=== PATIENT | male | born 1985 | race Caucasian/White ===

== ENCOUNTER 2016-12-05 10:44 | Observation (INO) | payer BC ==
[~2016-12-05] VITALS: Ht 190.5 cm; Wt 72.8 kg
[2016-12-05] MEDS ORDERED: LORazepam 2 MG/ML, 1ML IVPush ONE (12:00)
[2016-12-05] MEDS ORDERED: LORazepam 2 MG/ML, 1ML ONE (12:11)
[2016-12-05 12:15] LABS: ACETAMINOPHEN < 2 mcg/mL (10-30); BLOOD UREA NITROGEN 7 mg/dL (7-18)
[2016-12-05] MEDS ORDERED: DIPHENHYDRAMINE 50 MG CAPSULE PO PRN (13:30)
[2016-12-05] MEDS ORDERED: ONDANSETRON 2MG/ML, 2ML IV PRN (13:30)
[2016-12-05] MEDS ORDERED: LABETALOL 5MG/ML, 20ML IV PRN (13:30)
[2016-12-05] MEDS ORDERED: LORazepam 2 MG/ML, 1ML IV PRN ×5 (13:30)
[2016-12-05] MEDS ORDERED: ALUMINUM/MAG/SIMETHICONE 30 ML UDC PO PRN (13:30)
[2016-12-05] MEDS ORDERED: ACETAMINOPHEN 325 MG TABLET PO PRN (13:30)
[2016-12-05] MEDS ORDERED: LORazepam 1MG TABLET PO PRN ×4 (13:30)
[2016-12-05] MEDS ORDERED: LORazepam 0.5MG TABLET PO PRN (13:30)
[2016-12-05] MEDS ORDERED: POTASSIUM CHLORIDE 40 MEQ, MVI ADULT 10 ML, FOLIC ACID 1 MG, MAGNESIUM SULFATE 2 GM in ... IV SCH (16:00)
[2016-12-05] MEDS ORDERED: NICOTINE 21 MG/24 HR PATCH.TD24 TD SCH (16:00)
[2016-12-05 17:02] VITALS: BP 124/80
[2016-12-05 19:50] VITALS: BP 110/69
[2016-12-05] MEDS ORDERED: LORazepam 1MG TABLET ONE (21:47)
[2016-12-06 01:08] LABS: DAU SCREEN DISCLAIMER
[2016-12-06 03:41] VITALS: BP 118/74
[2016-12-06 05:40] LABS: ASPARTATE AMINO TRANSFERASE 85 U/L (15-37); BLOOD UREA NITROGEN 11 mg/dL (7-18)
[2016-12-06 08:00] VITALS: BP 116/74
[2016-12-06] MEDS ORDERED: NICOTINE 21 MG/24 HR PATCH.TD24 TD SCH (09:00)
[2016-12-06] MEDS ORDERED: ALPR0.25 PO (12:49)
== END 2016-12-06 13:05 | disposition home or self-care (01) ==
LOC: ED 11:35 → EDIP 12:45 → INTOOBSV 12:45 → 4EST 15:21 → DCLOUNGE 12-06 12:45
PROVIDERS: ADMIT Internal Medicine; ATTEND Internal Medicine
DX: R56.9 Unspecified convulsions (principal); E87.6 Hypokalemia; F10.10 Alcohol abuse, uncomplicated; F17.210 Nicotine dependence, cigarettes, uncomplicated
CPT/HCPCS: 36415; 70450; 71010; 80048; 80053; 80076; 80307; 80329; 82140; 83735; 84100; 85025; 85610; 93005; 95819; 96365; 96366; 96375; 99285; G0378; J2060; J3475; J3480; J7030; 82040; G0480

== ENCOUNTER 2017-01-08 00:38 | Emergency (ER) | payer BC ==
[~2017-01-08] VITALS: Ht 190.5 cm; Wt 70.3 kg
[~2017-01-08 00:38] MED LIST: ALPR0.25 PO
[2017-01-08] MEDS ORDERED: LIDOCAINE 1%, 20ML SQ ONE (02:30)
[2017-01-08] MEDS ORDERED: LIDOCAINE 1%, 20ML ONE (02:33)
[2017-01-08 02:38] VITALS: BP 122/86
[2017-01-08 02:54] LABS: HEMATOCRIT 42.9 % (39.2-51.8); HEMOGLOBIN 14.6 g/dL (13.7-18.0); WHITE BLOOD COUNT 6.5 x10^3/uL (3.4-10)
[2017-01-08 02:58] LABS: BLOOD UREA NITROGEN 10 mg/dL (7-18)
== END 2017-01-08 04:36 | disposition home or self-care (01) ==
LOC: ED 03:11
DX: S01.511A Laceration without foreign body of lip, initial encounter (principal); R56.9 Unspecified convulsions; X58.XXXA Exposure to other specified factors, initial encounter; Y93.89 Activity, other specified; Y92.89 Other specified places as the place of occurrence of the external cause; Y99.8 Other external cause status
CPT/HCPCS: 13132; 36415; 80048; 82040; 85025; 93005